=== PATIENT | female | born 1985 | race Hispanic/Latino ===

== ENCOUNTER 2019-01-16 13:02 | Outpatient (CLI) | payer OTHER ==
--- NOTE | 2019-01-16 14:22 | ULT ---
OB ULTRASOUND: Indications: Assess size and dates. FINDINGS: Single viable identified. Gestational age by ultrasound is 24 weeks 1 day. BDP 24 weeks 3 days HC 23 weeks 5 days AC 24 weeks 0 day FL 24 weeks 2 days EFW: 660 grams, 23 weeks 1 day Position: Vertex Placenta: Posterior Amniotic fluid: Within normal range MADINA: 16.5 cm heart rate: 155 beats/minute Cervical length: 4.0 cm anatomy evaluated including intracranial contents: Spine, sacrum, bladder, diaphragm, kidneys, three vessel cord, four chamber heart, stomach, cord insertion and facial features all appear unremar kable. No abnormality identified. IMPRESSION: 24 week 1 day gestation by ultrasound. No abnormality identified. POS: JASPREET
== END 2019-01-16 13:03 | disposition home or self-care (01) ==
LOC: SCSULT 13:02
PROVIDERS: ATTEND Nurse Practitioner Women's Health
DX: Z34.82 Encounter for supervision of other normal pregnancy, second trimester (principal); Z3A.24 24 weeks gestation of pregnancy
CPT/HCPCS: 76805

== ENCOUNTER 2019-04-25 09:39 | Inpatient (IN) | payer MEDICAID, OTHER, SELFPAY ==
[2019-04-25] MEDS ORDERED: NS / Oxytocin 40 units/1000ml 1,000 ML IV PRN (10:18)
[2019-04-25] MEDS ORDERED: Ondansetron PF 4 MG/2 ML Vial IVP PRN ×3 (10:18→16:48)
[2019-04-25] MEDS ORDERED: Lidocaine 1% (PF) 30 ML VIAL SC PRN (10:18)
[2019-04-25] MEDS ORDERED: Ibuprofen 800 MG TAB PO PRN (10:18)
[2019-04-25] MEDS ORDERED: CEFAZOLIN 2 GM in Premix Bag 1 BAG IVPB SCH (10:18)
[2019-04-25] MEDS ORDERED: Carboprost 250 MCG/ML AMP IM PRN (10:18)
[2019-04-25] MEDS ORDERED: hydrALAZINE 20 MG/ML VIAL SLOW IVP PRN ×2 (10:18→16:48)
[2019-04-25] MEDS ORDERED: Butorphanol Tartrate 1 MG/ML VIAL SLOW IVP PRN (10:18)
[2019-04-25] MEDS ORDERED: Diphenoxylate HCl/Atropine Tablet PO PRN (10:18)
[2019-04-25] MEDS ORDERED: Methylergonovine 0.2 MG/ML VIAL IM PRN (10:18)
[2019-04-25] MEDS ORDERED: Promethazine HCl 25 MG/ML VIAL IM PRN ×2 (10:18→13:35)
[2019-04-25] MEDS ORDERED: Misoprostol 200 MCG TAB PR PRN (10:18)
[2019-04-25] MEDS ORDERED: HYDROcodone/Acetaminophen 5/325 mg Tablet PO PRN (10:18)
[2019-04-25 10:27] VITALS: BMI 28.4
[2019-04-25] MEDS: Lactated Ringer's 1,000 ML IV SCH ×4 (10:39→22:04)
[2019-04-25 10:56] LABS: Hemoglobin 11.1 g/dL (12.0-16.0); Mean Corpuscular HGB CONC 34.8 g/dL (32.0-36.0); Mean Corpuscular Volume 92.1 fL (78.0-98.0); Platelet Count 202 thou/uL (130-400); RBC Distribution Width 11.1 % (11.5-14.5); Red Blood Cell (RBC) Count 3.46 mill/uL (4.20-5.40); White Blood Cell (WBC) Count 8.4 thou/uL (4.8-10.8)
[2019-04-25 11:36] LABS: Syphilis Antibody Nonreactive (Nonreactive); Syphilis Antibody Index 0.03 S/CO (<1.00 Non-Reactive)
[2019-04-25 11:39] LABS: HBSAg Index 0.27 S/CO (0-0.99); Hep B Surf Ag Non-Reactive S/CO (NonReactive)
[2019-04-25] MEDS ORDERED: MORPHINE 5 MG/10 ML PF VIAL ONE (12:45)
[2019-04-25] MEDS ORDERED: Phenylephrine HCL 10 MG/ML VIAL ONE (12:46)
[2019-04-25] MEDS ORDERED: Oxytocin 10 UNITS/ML VIAL ONE (12:46)
[2019-04-25] MEDS ORDERED: Methylergonovine 0.2 MG/ML VIAL ONE (13:20)
[2019-04-25] MEDS ORDERED: Carboprost 250 MCG/ML AMP ONE ×2 (13:20→13:22)
[2019-04-25] MEDS ORDERED: Ondansetron HCl/PF 4 MG/2 ML Vial IVP PRN (13:33)
[2019-04-25] MEDS ORDERED: L&D-Morphine 4 MG/ML VIAL SLOW IVP PRN (13:33)
[2019-04-25] MEDS ORDERED: Meperidine HCl/PF 25 MG/ML VIAL SLOW IVP PRN (13:33)
[2019-04-25] MEDS ORDERED: HYDROmorphone 2 MG/ML VIAL SLOW IVP PRN (13:33)
[2019-04-25] MEDS ORDERED: diphenhydrAMINE 50 MG/ML VIAL IVP PRN (13:35)
[2019-04-25] MEDS ORDERED: Promethazine HCl 25 MG SUPP PR PRN (13:35)
[2019-04-25] MEDS ORDERED: Naloxone HCl 0.4 mg/ml Vial IVP PRN ×2 (13:35)
[2019-04-25] MEDS ORDERED: Naloxone HCl 0.4 mg/ml Vial IV PRN (13:35)
[2019-04-25] MEDS ORDERED: Ondansetron PF 4 MG/2 ML Vial ONE (13:36)
[2019-04-25] MEDS ORDERED: Ketorolac Tromethamine 30 MG/ML VIAL IVP SCH (13:45)
[2019-04-25] MEDS ORDERED: Communication Order-Pharmacy FS SCH (13:45)
[2019-04-25] MEDS ORDERED: Promethazine HCl 25 MG/ML VIAL ONE (13:55)
[2019-04-25] MEDS ORDERED: Bisacodyl 10 MG SUPP PR PRN (16:48)
[2019-04-25] MEDS ORDERED: Lanolin Ointment 7 GM TUBE TOP PRN (16:48)
[2019-04-25] MEDS ORDERED: NS / Oxytocin 40 units/1000ml 1,000 ML IV SCH (16:48)
[2019-04-25] MEDS ORDERED: diphenhydrAMINE 25 MG CAP PO PRN (16:48)
[2019-04-25] MEDS ORDERED: Sodium Chloride 0.9% 20 ML ONE (18:06)
[2019-04-25] MEDS: Ketorolac Tromethamine 30 MG/ML VIAL IVP PRN (18:17)
[2019-04-25] MEDS: Ibuprofen 800 MG TAB PO SCH (18:33)
[2019-04-25] MEDS: Docusate Calcium (SURFAK) 240 MG CAP PO SCH (23:18)
[2019-04-25] MEDS: Ferrous Sulfate 325 MG TAB PO SCH (23:19)
[2019-04-26] MEDS: Ibuprofen 800 MG TAB PO SCH ×3 (01:43→21:42)
[2019-04-26] MEDS ORDERED: Meperidine HCl/PF 25 MG/ML VIAL IM PRN (01:45)
[2019-04-26] MEDS ORDERED: HYDROcodone/Acetaminophen 5/325 mg Tablet PO PRN (01:45)
[2019-04-26] MEDS: Ketorolac Tromethamine 30 MG/ML VIAL IVP PRN (05:40)
[2019-04-26] MEDS: Simethicone Chewable 80 MG TAB PO PRN ×3 (05:41→21:45)
[2019-04-26 05:44] LABS: #Lymphocytes 1.2 thou/uL (1.20-3.40); #Monocytes 0.6 thou/uL (0.11-0.59); #Neutrophils 9.5 thou/uL (1.40-6.50); %Eosinophils 0.3 % (0.0-10.0); %Lymphocytes 10.3 % (21.0-51.0); %Monocytes 5.1 % (0.0-10.0); %Neutrophils 84.2 % (42.0-75.0); Hemoglobin 10.3 g/dL (12.0-16.0); Mean Corpuscular HGB CONC 34.1 g/dL (32.0-36.0); Mean Corpuscular Hemoglobin 32.1 pg (27.0-31.0); Mean Corpuscular Volume 94.3 fL (78.0-98.0); Mean Platelet Volume 7.9 fL (7.4-10.4); Platelet Count 174 thou/uL (130-400); RBC Distribution Width 11.1 % (11.5-14.5); Red Blood Cell (RBC) Count 3.21 mill/uL (4.20-5.40); White Blood Cell (WBC) Count 11.2 thou/uL (4.8-10.8)
[2019-04-26] MEDS: Docusate Calcium (SURFAK) 240 MG CAP PO SCH ×2 (09:13→21:42)
[2019-04-26] MEDS: Ferrous Sulfate 325 MG TAB PO SCH ×2 (09:13→21:44)
[2019-04-26] MEDS: Prenatal Vitamin 1 TAB PO SCH (09:13)
[2019-04-26] MEDS: HYDROcodone/Acetaminophen 5/325 mg Tablet PO PRN (17:33)
[2019-04-27] MEDS: Ibuprofen 800 MG TAB PO SCH ×3 (05:09→21:31)
[2019-04-27] MEDS: HYDROcodone/Acetaminophen 5/325 mg Tablet PO PRN ×2 (05:14→19:48)
--- NOTE | 2019-04-27 05:18 | PDOC.PP ---
Post Progress Note Post Day #: 2 Subjective: Patient states pain is well controlled. Has not had bowel movement but is passing gas. Ambulating well. Tolerating PO intake. Not ready to leave as of yet may want to go later today. PO intake tolerated: yes Flatus: yes Ambulation: yes Vital Signs (12 hours) Temp Pulse Resp BP BP 04/26/19 23:34 98.0 F 93 18 98/53 L 04/26/19 20:06 97.8 F 86 18 117/62 04/26/19 17:30 98.7 F 96 20 122/66 Weight Weight 63.957 kg - Physical Examination General: NAD Cardiovascular: no m/r/g, RRR Respiratory: clear to auscultation bilaterally, non-labored breathing Abdominal: + bowel sounds, lochia, no distention, appropriately TTP Extremities: negative homans (B) Skin: CS incision dry & intact, no rash Neurological: no gross focal deficits Psychiatric: A&Ox3, normal affect Result Diagrams: 04/26/19 05:23 Additional Labs: Post Labs Blood Type B POSITIVE 04/25/19 11:20 Hep Bs Antigen Non-Reactive S/CO (NonReactive) 04/25/19 10:45 (1) Status: Acute - Assessment/Plan Post day 2, repeat c/s x3 on 04/25 - VSS, routine care - hgb 11.1-> 10.3 - incision dry and intact, uterus firm - anticipate d/c tomorrow Addendum - Attending - Attending Attestation Date/Time: 04/29/19924 I evaluated the patient and discussed the management with Dr. Almaguer. I agree with the Assessment and Plan documented above.
[2019-04-27] MEDS: Prenatal Vitamin 1 TAB PO SCH (08:12)
[2019-04-27] MEDS: Ferrous Sulfate 325 MG TAB PO SCH ×2 (08:13→23:43)
[2019-04-27] MEDS: Docusate Calcium (SURFAK) 240 MG CAP PO SCH ×2 (08:13→21:31)
--- NOTE | 2019-04-28 00:22 | OP ---
DATE OF PROCEDURE: 04/25/2019 RESIDENT: Magdalena Estrada DO PROCEDURE: Repeat low transverse section. PREOPERATIVE DIAGNOSES: 1. Term intrauterine . 2. Previous x2. POSTOPERATIVE DIAGNOSES: 1. Term intrauterine , delivered. 2. Previous x2. ANESTHESIA: Spinal. INDICATIONS: This is a 33-year-old G4, P2-0-1-2 at 39 and 1 week, who presented for repeat scheduled . PROCEDURE IN DETAIL: After risks, benefits, and alternatives were explained to the patient, she gave informed consent. Preoperative antibiotics included cefazolin 2 g IV. The patient was taken to the operating room and spinal anesthesia was initiated. She was placed in supine position with a left tilt and prepped and draped in the usual sterile fashion. A Pfannenstiel incision was made with a scalpel and carried down to the level of the fascia, which was sharply nicked. The fascial cut was extended bilaterally with Rose scissors. Inferior and superior edges of the cut fascial edges were elevated with Ozzy clamps. The underlying rectus muscles were sharply and bluntly dissected free. The recti were divided digitally and retracted manually. The peritoneum was entered bluntly and retracted manually. Bladder blade was placed. Bladder flap was created. A low transverse score was made with a scalpel. The uterus was entered in the midline with a scalpel. Clear fluid was seen. Hysterotomy was extended manually. Infant was noted to be vertex and was easily delivered by fundal pressure. Mouth and nares were bulb suctioned. Cord was clamped and cut, and grossly normal. Grossly normal female was handed to the waiting nurse. Cord blood was obtained. Placenta was manually extracted and found to be intact with three-vessel cord and discarded. The uterus was externalized and endometrium was curetted with a dry lap. The bladder blade was replaced. The uterus was closed with a running locking 0 Vicryl suture followed by several [id number]-ci-wqocu stitches using 0 Vicryl suture. Following this, hemostasis was noted. Abdomen was irrigated with saline and suctioned free of clots. The uterus was internalized. The hysterotomy was again noted to be hemostatic. The fascia was closed with a running nonlocking 0 PDS suture. The subcutaneous tissue was irrigated and bleeders were cauterized. Subcutaneous tissue was brought together using 2-0 plain gut. Skin was approximated with keiry and pressure dressing was placed. All counts were correct. The patient tolerated the procedure well and was taken to the recovery room in stable condition. ESTIMATED BLOOD LOSS: 415 mL. COMPLICATIONS: None. SPECIMENS: Cord blood sent to lab for blood type. FINDINGS: Grossly normal female infant with Apgars 8 and 9 at 1 and 5 minutes respectively. Grossly normal placenta with 3-vessel cord discarded. DRAINS: Mendoza to gravity, draining clear urine. Job ID: [id number]
[2019-04-28] MEDS: Ibuprofen 800 MG TAB PO SCH (05:02)
[2019-04-28] MEDS: Ferrous Sulfate 325 MG TAB PO SCH (07:21)
[2019-04-28] MEDS: Docusate Calcium (SURFAK) 240 MG CAP PO SCH (07:58)
[2019-04-28] MEDS: Prenatal Vitamin 1 TAB PO SCH (07:58)
[2019-04-28 08:29] VITALS: BP 135/73; TEMP 98.3
--- NOTE | 2019-04-28 12:15 | DIS ---
DATE OF ADMISSION: 04/25/2019 DATE OF DISCHARGE: 04/28/2019 ADMITTING DIAGNOSIS: Term , scheduled for repeat section. DISCHARGE DIAGNOSIS: Term , scheduled for repeat section. PROCEDURE: Repeat lower-transverse section. CONSULTATIONS: None. HOSPITAL COURSE: The patient is a 33-year-old multiparous female, who presented for a repeat scheduled . For complete details, please refer to the operative note. The patient's postoperative course has been uncomplicated. She is now postoperative day 3. She reports she is having good pain control. She is tolerating p.o., voiding on her own, having decreased lochia. PHYSICAL EXAMINATION: VITAL SIGNS: This morning, blood pressure 129/64, temperature 98.1, pulse of 94, respiratory rate of 18, and saturating 98% on room air. GENERAL: She appears to be in no acute distress. She is alert and oriented, cooperative and pleasant to interact with. ABDOMEN: Appropriately tender. Fundus is firm. Incision is clean, dry, and intact with keiry. Her postdelivery hemoglobin and hematocrit of 10.3 and 30.2, platelets of 174,000. The patient is being discharged to home with tramadol and ibuprofen for her pain control. Keiry will be removed and replaced by Steri-Strips prior to discharge. The patient has been given instructions to follow up with Dr. Chavez in 2 weeks. She has also been given instructions to seek medical attention sooner if she experiences fever, increasing pain or bleeding, redness or drainage from her incision site. She has also been given instructions to not drive for the next 2 weeks. She has a 15-pound weight limit for the next 4 to 6 weeks. Again, the patient is being discharged home with ibuprofen and tramadol for pain control. Prescriptions have been provided. Job ID: [id number]
== END 2019-04-28 11:45 | disposition home or self-care (01) | DRG 788 ==
LOC: L&D 09:39 → 3SW 16:42
PROVIDERS: ADMIT Family Medicine; ATTEND Family Medicine
PROC: 10D00Z1 Extraction of Products of Conception, Low, Open Approach (ICD-10-PCS; principal; 2019-04-27)
DX: O34.211 Maternal care for low transverse scar from previous cesarean delivery (principal); Z3A.39 39 weeks gestation of pregnancy; Z37.0 Single live birth
CPT/HCPCS: 36415; 51702; 85025; 85027; 86780; 86850; 86900; 86901; 87340; J0690; J1885; J2001; J2210; J2274; J2370; J2405; J2550; J2590; J3490